=== PATIENT | female | born 1945 | race Caucasian/White ===

== ENCOUNTER → 2016-03-24 05:35 | Day surgery (SDC) | payer MEDICARE, MEDICAID ==
[~2016-03-24 05:35] MED LIST: Buffered Lidocaine 1% SYR 3ML* 3 ML/SYR SYRINGE INTRADERM ONE; Buffered Lidocaine 1% SYR 3ML* 3 ML/SYR SYRINGE ONE; Bupivacaine 0.5% SDV PF* 30 ML VIAL ONE; Famotidine IV* 10 MG/ML 2 ML (20 mg) IV ONE; Famotidine IV* 10 MG/ML 2 ML (20 mg) ONE; Gelfoam 12-7 ADSORBABL SPONGE* 1 EA SPONGE ONE; KETAMINE HCL* 50 MG/ML 10 ML VIAL ONE; Ketorolac INJ* 30 MG/ML 1 ML VIAL ONE; Lidocaine 2% PF* 10 ML AMP ONE; Metoprolol Tartrate IV* 1 MG/ML 5 ML VIAL ONE; Midazolam* 1 MG/ML 5 ML VIAL (5 MG) ONE; Morphine INJ* 10 MG/ML 1 ML CARPUJECT ONE; Ondansetron INJ* 2 MG/ML VIAL ONE; PROCHLORPERAZINE INJ 5 MG/ML 2 ML VIAL IV PRN; PROCHLORPERAZINE INJ 5 MG/ML 2 ML VIAL ONE; Phenylephrine INJ* 10 MG/ML 1 ML VIAL (10 MG) ONE; Propofol* 10 MG/ML 20 ML BTL IV PUSH ONE; Scopolamine 1.5 mg* PATCH ONE; Scopolamine 1.5 mg* PATCH TRANSDERM SCH; ceFAZolin 2 GM PREMIX (*) 2 GM/50 ML BAG IVPB ONE; fentaNYL* 50 MCG/ML 2 ML VIAL (100 MCG VIAL) ONE; fentaNYL* 50 MCG/ML 5 ML VIAL (250 MCG VIAL) ONE; oxyCODONE/Acetamin 5/325 MG* TAB ONE
[2016-03-24] MEDS: Morphine INJ* 2 MG/ML 1 ML CARPUJECT IV PRN ×5 (09:09→09:47)
[2016-03-24] MEDS: fentaNYL* 50 MCG/ML 2 ML VIAL (100 MCG VIAL) IV PRN ×6 (09:10→09:48)
[2016-03-24] MEDS: oxyCODONE/Acetamin 5/325 MG* TAB PO PRN ×2 (09:12→09:26)
[2016-03-24 11:23] VITALS: BP 146/50
--- NOTE | 2016-03-25 01:01 | OP ---
DATE OF OPERATION: 03/24/16 - [facility] DATE OF : 49 SURGEON: Heladio Hodge MD SURVEY COORDINATOR: Mona Gupta PA-C ANSTHESIOLOGIST: Kobe Paul MD ANESTHESIA: General PRE-OP DIAGNOSIS: Right tibiotalar arthrosis. POST-OP DIAGNOSIS: Right tibiotalar arthrosis. OPERATIVE PROCEDURE: Removal of fibular plate and right tibiotalar fusion. DESCRIPTION OF PROCEDURE: The patient was taken to the operating room, where a longitudinal incision was made over the distal fibula. We located the small fragment locking and nonlocking screws, removing that from the fibula as well as the plate. We then carried the full-thickness dissection down along the anterior aspect of the tibiotalar joint with a Estrada retractor placed medially and dissecting around the distal ligaments. Laminar filter tender jelly was used to open the joint. We prepared the joint for arthrodesis using a 5-mm power bur and opened up the distal lateral femoral fibular cortex to allow cancellous bone to be harvested. The bone graft placed along the tibiotalar joint. The ankle fusion was fixed in a neutral position using paired 6.5 mm cannulated screws. Good fixation and alignment was obtained. We then irrigated thoroughly , closing with 0 Vicryl, al for the skin and a compression dressing and plaster splint applied. [id number]/[facility] #: [id number] MTDD
--- NOTE | 2016-03-25 08:00 | RAD ---
INDICATION: Right ankle fusion, posttraumatic osteoarthritis right ankle and foot COMPARISONS: January 30, 2016 TECHNIQUE: Fluoroscopy was provided for a surgical procedure. Total fluoroscopy time is: 11.3 seconds FINDINGS: Spot images demonstrate metallic screws across the tibiotalar articulation. There is post surgical change to the distal fibula. IMPRESSION: FLUOROSCOPY WAS PROVIDED FOR A SURGICAL PROCEDURE CPT II Codes: 6045F
== END | disposition home or self-care (01) ==
LOC: OR 05:35
PROVIDERS: ATTEND Orthopaedic Surgery
DX: M19.171 Post-traumatic osteoarthritis, right ankle and foot (principal); F17.210 Nicotine dependence, cigarettes, uncomplicated; E11.9 Type 2 diabetes mellitus without complications; I10 Essential (primary) hypertension; Z86.73 Personal history of transient ischemic attack (TIA), and cerebral infarction without residual deficits; Z79.01 Long term (current) use of anticoagulants
CPT/HCPCS: 76001; 88300; A9270-GY; C1713; C1776; J0690; J0780; J1885; J2001; J2250; J2270; J2405; J2704; J3010; J3490